=== PATIENT | male | born 1935 | race Caucasian/White ===

== ENCOUNTER → 2017-03-05 | Outpatient (CLI) | payer MEDICARE ==
[~2017-03-05] VITALS: Ht 170.2 cm; Wt 88.5 kg
[~2017-03-05] MED LIST: AMLO5TAB2 PO; ASPI81CH PO; CARV12.5 PO; ECOT81TA5 PO; LIDOCAINE 2% INJ 100 MG/5 ML SDV (FOR ANES.) As Ordered ONE; NEXI40CA PO; NS 1,000 ML IV ONE; PRAV40TA2 PO; PROPOFOL 200 MG/20 ML VIAL As Ordered ONE; fentaNYL 100 MCG/2 ML INJECTION (J3010) As Ordered ONE
--- NOTE | 2017-03-05 11:26 | ROOR ---
Patient Name: Dennis Montes Procedure Date: 03/05/2017 11:03 AM Date of : 1935 Age: 81 Room: [facility] Gender: Male Note Status: Finalized Procedure: Upper GI endoscopy + Balloon Dilatation Indications: Dysphagia, Heartburn Providers: Jayme Rodriguez MD Referring MD: SAMANTHA GARDNER Requesting Provider: Medicines: Monitored Anesthesia Care Complications: No immediate complications. Procedure: Pre-Anesthesia Assessment: - The heart rate, respiratory rate, oxygen saturations, blood pressure, adequacy of pulmonary ventilation, and response to care were monitored throughout the procedure. The Endoscope was introduced through the mouth, and advanced to the second part of duodenum. The upper GI endoscopy was accomplished without difficulty. The patient tolerated the procedure well. Findings: The Z-line was regular and was found 35 cm from the incisors. A non-obstructing Schatzki ring (acquired) was found at the gastroesophageal junction. A TTS dilator was passed through the scope. Dilation with an 18-19-20 mm balloon dilator was performed to 20 mm. The dilation site was examined and showed mild improvement in luminal narrowing. A large hiatal hernia was present. No other significant abnormalities were identified in a careful examination of the stomach. The exam of the duodenum was otherwise normal. Impression: - Z-line regular, 35 cm from the incisors. - Non-obstructing Schatzki ring. Dilated. - Large hiatal hernia. - No specimens collected. - The examination was otherwise normal. Recommendation: - Patient has a contact number available for emergencies. The signs and symptoms of potential delayed complications were discussed with the patient. Return to normal activities tomorrow. Written discharge instructions were provided to the patient. - High fiber diet. - Discharge patient to home. - Continue present medications. - Use Nexium (esomeprazole) 40 mg PO BID. - Follow an antireflux regimen. - Return to referring physician. - The findings and recommendations were discussed with the patient's family. Jayme Rodriguez MD Jayme Rodriguez MD 03/05/2017 11:26:08 AM This report has been signed electronically. Number of Addenda: 0 Note Initiated On: 03/05/2017 11:03 AM Estimated Blood Loss: Estimated blood loss: none.
--- NOTE | 2017-03-05 11:47 | ROOR ---
Patient Name: Dennis Montes Procedure Date: 03/05/2017 11:06 AM Date of : 1935 Age: 81 Room: [facility] Gender: Male Note Status: Finalized Procedure: Total Colonoscopy to Cecum + Cold Snare Polypectomy + Hemoclip Indications: Screening for colorectal malignant neoplasm, Last colonoscopy: 2003 Providers: Jayme Rodriguez MD Referring MD: SAMANTHA GARDNER Requesting Provider: Medicines: Monitored Anesthesia Care Complications: No immediate complications. Procedure: Pre-Anesthesia Assessment: - The heart rate, respiratory rate, oxygen saturations, blood pressure, adequacy of pulmonary ventilation, and response to care were monitored throughout the procedure. The Colonoscope was introduced through the anus and advanced to the cecum, identified by appendiceal orifice and ileocecal valve. The colonoscopy was performed without difficulty. The patient tolerated the procedure well. The quality of the bowel preparation was excellent. Findings: The perianal and digital rectal examinations were normal. Non-bleeding internal hemorrhoids were found during retroflexion. The hemorrhoids were small and Grade I (internal hemorrhoids that do not prolapse). Multiple small and large-mouthed diverticula were found in the recto-sigmoid colon, sigmoid colon and descending colon. Two sessile polyps were found at 50 cm proximal to the anus. The polyps were small in size. These polyps were removed with a cold snare. Resection and retrieval were complete. To prevent bleeding after the polypectomy, one hemostatic clip was successfully placed (MR conditional). There was no bleeding at the end of the procedure. The exam was otherwise without abnormality on direct and retroflexion views. Impression: - Non-bleeding internal hemorrhoids. - Diverticulosis in the recto-sigmoid colon, in the sigmoid colon and in the descending colon. - Two small polyps at 50 cm proximal to the anus, removed with a cold snare. Resected and retrieved. Clip (MR conditional) was placed. - The examination was otherwise normal on direct and retroflexion views. - The exam was otherwise normal to the cecum. Recommendation: - Patient has a contact number available for emergencies. The signs and symptoms of potential delayed complications were discussed with the patient. Return to normal activities tomorrow. Written discharge instructions were provided to the patient. - High fiber diet. - Discharge patient to home. - Continue present medications. - Repeat colonoscopy for symptoms only. - Return to referring physician. - Check Portal Online for Path Results.([email or web address]) - The findings and recommendations were discussed with the patient's family. Jayme Rodriguez MD Jayme Rodriguez MD 03/05/2017 11:47:03 AM This report has been signed electronically. Number of Addenda: 0 Note Initiated On: 03/05/2017 11:06 AM Estimated Blood Loss: Estimated blood loss: none.
[2017-03-05 12:00] VITALS: BP 129/74
== END | disposition home or self-care (01) ==
LOC: M OPP 10:11
PROVIDERS: ATTEND Internal Medicine Gastroenterology
DX: Z12.11 Encounter for screening for malignant neoplasm of colon (principal); D12.5 Benign neoplasm of sigmoid colon; K64.0 First degree hemorrhoids; K57.30 Diverticulosis of large intestine without perforation or abscess without bleeding; R13.10 Dysphagia, unspecified; R12 Heartburn; K22.2 Esophageal obstruction; K44.9 Diaphragmatic hernia without obstruction or gangrene; I10 Essential (primary) hypertension; E78.5 Hyperlipidemia, unspecified; N40.1 Benign prostatic hyperplasia with lower urinary tract symptoms; K21.9 Gastro-esophageal reflux disease without esophagitis; Z86.79 Personal history of other diseases of the circulatory system; Z88.5 Allergy status to narcotic agent; Z79.82 Long term (current) use of aspirin; Z79.899 Other long term (current) drug therapy; Z80.8 Family history of malignant neoplasm of other organs or systems; Z80.3 Family history of malignant neoplasm of breast
CPT/HCPCS: 43249; 45385; 88305; J3010

== ENCOUNTER → 2020-02-03 | Outpatient (CLI) | payer MEDICARE ==
[~2020-02-03] MED LIST changes: -AMLO5TAB2 PO; +AMLO5TAB6 PO; -ASPI81CH PO; +ASPI81CH49 PO; -LIDOCAINE 2% INJ 100 MG/5 ML SDV (FOR ANES.) As Ordered ONE; -NS 1,000 ML IV ONE; -PROPOFOL 200 MG/20 ML VIAL As Ordered ONE; -fentaNYL 100 MCG/2 ML INJECTION (J3010) As Ordered ONE
== END ==
LOC: M PLALAB 08:39
PROVIDERS: ATTEND Internal Medicine
DX: R93.89 Abnormal findings on diagnostic imaging of other specified body structures (principal)
CPT/HCPCS: 36415; U0002

== ENCOUNTER 2020-04-26 03:35 | Emergency (ER) | payer MEDICARE ==
[~2020-04-26 03:35] MED LIST changes: +AMLO1TAB24 PO; -AMLO5TAB6 PO
[2020-04-26] MEDS ORDERED: ASPIRIN 81 MG CHEW TABLET ONE (04:17)
--- NOTE | 2020-06-08 17:04 | ECGEPIP ---
SINUS BRADYCARDIA WITH BORDERLINE ONE DEGREE AVB NONSPECIFIC ST & T-WAVE CHANGES SEE SCANNED DOWNTIME REPORT MTDD
--- NOTE | 2020-06-08 17:05 | ECGEPIP ---
SINUS BRADYCARDIA WITH ONE DEGREE AVB NONSPECIFIC ST & T-WAVE CHANGES SEE SCANNED DOWNTIME REPORT MTDD
[2020-06-11 11:33] LABS: BASO # 0.1 10^3/uL (0.0-0.2); BASO % 0.7 % (0.0-1.0); EOS # 0.4 10^3/uL (0.0-0.5); EOS % 5.5 % (0.0-3.0); HEMATOCRIT 39.4 % (42.0-52.0); HEMOGLOBIN 12.7 g/dl (13.5-17.5); LYMPH # 2.8 10^3/uL (1.5-5.0); LYMPH % 34.4 % (24.0-44.0); MEAN CORPUSCULAR HEMOGLOBIN 31.6 pg (27.0-33.0); MEAN CORPUSCULAR HGB CONC 32.2 g/dl (32.0-36.5); MONO # 0.7 10^3/uL (0.0-0.8); MONO % 8.4 % (0.0-5.0); NEUTROPHILS # 4.1 10^3/uL (1.5-8.5); NEUTROPHILS % 50.9 % (36.0-66.0); PLATELET COUNT, AUTOMATED 247 10^3/uL (150-450); RED BLOOD COUNT 4.02 10^6/uL (4.30-6.10); WHITE BLOOD COUNT 8.1 10^3/uL (4.0-10.0)
[2020-06-20 07:46] LABS: BLOOD UREA NITROGEN 17 MG/DL (7-18); CALCIUM LEVEL 8.8 MG/DL (8.8-10.2); CARBON DIOXIDE LEVEL 30 MEQ/L (21-32); CHLORIDE LEVEL 106 MEQ/L (98-107); CK-MB VALUE MASS < 1.0 NG/ML (<3.6); CPK CREATINE PHOSPHOKINASE 56 U/L (39-308); CREATININE FOR GFR 1.45 MG/DL (0.70-1.30); GLOMERULAR FILTRATION RATE 49.5 (>35); GLUCOSE, FASTING 101 MG/DL (70-100); MB/CK RELATIVE INDEX 1.79 (< OR =4); POTASSIUM SERUM 4.2 MEQ/L (3.5-5.1); SODIUM LEVEL 138 MEQ/L (136-145); TROPONIN I < 0.02 NG/ML (< 0.10)
[2020-07-22 10:12] LABS: CK-MB VALUE MASS 1.2 NG/ML (<3.6); CPK CREATINE PHOSPHOKINASE 55 U/L (39-308); MB/CK RELATIVE INDEX 2.18 (< OR =4); TROPONIN I < 0.02 NG/ML (< 0.10)
== END 2020-04-26 12:40 | disposition home or self-care (01) ==
LOC: M ED 03:35
DX: M79.602 Pain in left arm (principal); I51.9 Heart disease, unspecified; I10 Essential (primary) hypertension; E78.5 Hyperlipidemia, unspecified; J84.10 Pulmonary fibrosis, unspecified; R00.1 Bradycardia, unspecified; I44.0 Atrioventricular block, first degree; R94.31 Abnormal electrocardiogram [ECG] [EKG]; Z79.899 Other long term (current) drug therapy

== ENCOUNTER 2021-06-04 18:04 | Inpatient (IN) | payer MEDICARE ==
[~2021-06-04] VITALS: Ht 167.6 cm; Wt 81.5 kg
--- NOTE | 2021-06-04 18:58 | REP ---
INDICATION: DYSPNEA/COUGH. COMPARISON: 04/26/2020 TECHNIQUE: Portable FINDINGS: The technique utilized in obtaining the radiograph has magnified the cardiac silhouette and accentuated the interstitial markings. There is a marked and diffuse increase in the interstitial markings throughout the lung ayers along with suspected patchy bilateral airspace opacities. Small pleural effusions cannot be ruled out on this limited portable exam. Mild cardiomegaly is suspected, however, the heart borders cannot be detected due to the aforementioned opacities causing multifocal silhouetting. There is no change in the osseous structures. IMPRESSION: Likely acute disease superimposed upon advanced chronic fibrotic change. <Electronically signed by Joaquim Coleman > 06/04/21 [id number]
[2021-06-04 19:16] LABS: BASO # 0.1 10^3/uL (0.0-0.2); BASO % 0.4 % (0.0-1.0); EOS # 0.2 10^3/uL (0.0-0.5); EOS % 1.4 % (0.0-3.0); HEMATOCRIT 25.8 % (42.0-52.0); HEMOGLOBIN 8.2 g/dl (13.5-17.5); LYMPH # 1.5 10^3/uL (1.5-5.0); MEAN CORPUSCULAR HEMOGLOBIN 31.2 pg (27.0-33.0); MEAN CORPUSCULAR HGB CONC 31.8 g/dl (32.0-36.5); MEAN CORPUSCULAR VOLUME 98.1 fl (80.0-96.0); MONO # 1.4 10^3/uL (0.0-0.8); MONO % 10.2 % (2.0-8.0); NEUTROPHILS # 10.4 10^3/uL (1.5-8.5); NEUTROPHILS % 76.3 % (36.0-66.0); PLATELET COUNT, AUTOMATED 312 10^3/uL (150-450); RED BLOOD COUNT 2.63 10^6/uL (4.30-6.10); WHITE BLOOD COUNT 13.6 10^3/uL (4.0-10.0)
[2021-06-04 19:50] LABS: RSV AMPLIFICATION NEGATIVE (NEGATIVE)
[2021-06-04 19:50] LABS: ALBUMIN 2.7 GM/DL (3.2-5.2); ALT/SGPT 18 U/L (12-78); BILIRUBIN,DIRECT 0.1 MG/DL (0.0-0.2); BILIRUBIN,TOTAL 0.4 MG/DL (0.2-1.0); BLOOD UREA NITROGEN 39 MG/DL (7-18); CALCIUM LEVEL 8.8 MG/DL (8.8-10.2); CARBON DIOXIDE LEVEL 25 MEQ/L (21-32); CHLORIDE LEVEL 106 MEQ/L (98-107); CK-MB VALUE MASS < 1.0 NG/ML (<3.6); CPK CREATINE PHOSPHOKINASE 34 U/L (39-308); CREATININE FOR GFR 3.11 MG/DL (0.70-1.30); GLOMERULAR FILTRATION RATE 20.5 (>35); GLUCOSE, FASTING 114 MG/DL (70-100); MB/CK RELATIVE INDEX 2.94 (< OR =4); NT-PRO BNP 3128 PG/ML (<450); POTASSIUM SERUM 4.5 MEQ/L (3.5-5.1); SODIUM LEVEL 137 MEQ/L (136-145); THYROID STIMULATING HORMONE 0.594 uIU/ML (0.358-3.740); THYROXINE (T4) 6.4 UG/DL (4.5-12.0); TOTAL PROTEIN 7.9 GM/DL (6.4-8.2); TROPONIN I < 0.02 NG/ML (< 0.10)
[2021-06-04] MEDS: guaiFENesin ER 600 MG TAB PO SCH (21:00)
[2021-06-04] MEDS: OCUVITE 1 TAB PO SCH (21:00)
[2021-06-04] MEDS: PRAVASTATIN 20 MG TAB PO SCH (21:00)
[2021-06-04] MEDS: PANTOPRAZOLE 40MG TAB (PROTONIX) PO SCH (21:00)
[2021-06-04] MEDS: CARVedilol 12.5 MG TAB PO SCH (21:00)
--- NOTE | 2021-06-04 21:56 | REPVR ---
PROCEDURE INFORMATION: Exam: CT Chest Without Contrast; Diagnostic Exam date and time: 06/04/2021 8:35 PM Age: 85 years old Clinical indication: Shortness of breath; Additional info: Further evaluate SOB; ? Pneumonia TECHNIQUE: Imaging protocol: Diagnostic computed tomography of the chest without contrast. 3D rendering (Not supervised by radiologist): MIP and/or 3D reconstructed images were created by the technologist. Radiation optimization: All CT scans at this facility use at least one of these dose optimization techniques: automated exposure control; mA and/or kV adjustment per patient size (includes targeted exams where dose is matched to clinical indication); or iterative reconstruction. COMPARISON: CR PORTABLE CHEST X-RAY 06/04/2021 6:35 PM FINDINGS: Lungs: Multiple bilateral solid pulmonary parenchymal infiltrates consistent with multifocal pneumonitis. There is evidence of septal thickening in both upper lower lung zones with honeycombing suggesting underlying interstitial lung disease. Bibasilar bronchiectasis and bronchiectasis in the right middle lobe. Pleural spaces: Unremarkable. No pneumothorax. No pleural effusion. Heart: This patient is status post transaortic valve replacement (TAVR). Mediastinal space: A moderate hiatal hernia is present. Pulmonary arteries: There is enlargement of the central pulmonary arteries, findings which can be associated with pulmonary arterial hypertension which should be correlated clinically. Aorta: Unremarkable. No aortic aneurysm. Lymph nodes: Mediastinal lymphadenopathy measuring up to 3 cm in the pretracheal retrocaval area. Gallbladder and bile ducts: There are gallstones present. No evidence of cholecystitis demonstrated. Bones/joints: The spine demonstrates moderate degenerative changes. Age indeterminate compression deformity at L1. Clinical correlation to exclude acute fracture suggested. Soft tissues: Unremarkable. IMPRESSION: 1. Multiple bilateral solid pulmonary parenchymal infiltrates consistent with multifocal pneumonitis. There is evidence of septal thickening in both upper lower lung zones with honeycombing suggesting underlying interstitial lung disease. 2. Bibasilar bronchiectasis and bronchiectasis in the right middle lobe. 3. Mediastinal lymphadenopathy measuring up to 3 cm in the pretracheal retrocaval area. 4. There is enlargement of the central pulmonary arteries, findings which can be associated with pulmonary arterial hypertension which should be correlated clinically. 5. A moderate hiatal hernia is present. 6. There are gallstones present. No evidence of cholecystitis demonstrated. Electronically signed by: Kip Pearce On 06/04/2021 21:55:53 PM
[2021-06-04] MEDS ORDERED: methylPREDNISolone 125MG 2ML VIAL IV ONE (22:10)
[2021-06-04 22:47] VITALS: O2SAT 90
[2021-06-04] MEDS ORDERED: PANT40TA29 PO (22:53)
[2021-06-04] MEDS ORDERED: ASPI-161 PO (22:53)
[2021-06-04] MEDS ORDERED: OCUVTAB4 PO (22:53)
[2021-06-04] MEDS ORDERED: VITA-245 PO (22:53)
[2021-06-04] MEDS ORDERED: FAMO40TA3 PO (22:53)
[2021-06-04] MEDS ORDERED: C 50TAB PO (22:53)
[2021-06-04] MEDS ORDERED: HOME MED LIST COMPLETE! XX SCH (22:55)
[2021-06-04] MEDS ORDERED: ACETAMINOPHEN TAB 650MG DOSE (2X325MG) PO PRN (22:55)
[2021-06-04] MEDS ORDERED: CARV25TA PO (22:58)
[2021-06-04 23:07] LABS: MAGNESIUM LEVEL 2.2 MG/DL (1.8-2.4)
--- NOTE | 2021-06-05 00:04 | HPEPDOC ---
General Date of Admission 06/04/21 Date of Service: Jun 04, 2021 Chief Complaint shortness of breath Source: Patient History of Present Illness Ms. Montes is a 85-year-old male with significant history of hypertension, GERD, CKD, vertigo TAVR and chronic respiratory failure who presents with complaints of worsening shortness of breath. Patient reports that he splits his time in [place] and [place] depend on the season. He is in the process of transitioning to [facility] living [facility] so that he and his can be close to his daughter who is a retired RN. Patient reports that he recently had cardiac work-up done in his home town of [facility] with no new findings he also endorses last week undergoing an EGD with GI to confirm that he no longer has a gastric ulcer. Patient reports that for the past 3 days he has had worsening shortness of breath dyspnea on exertion and poor saturation readings as low as 84% with his 6 L nasal cannula. Patient endorses cough productive and even bloody. He also endorses subjective fever chills. It was today as he was feeling "out of it and his family was reportedly concerned regarding patient passing out or he described "or maybe I did pass out" and thus, he came to ER. Pt denies bagley, sinus congestion, sore throat, palpitations, chest pain, n/v/d, abdominal pain, weakness, or sensory changes. Of note, patient saturation in the 70s upon arrival to ER improvement with nonrebreather and de-escalation.oxime mask 10 L 91%. At time of exam patient unlabored and seemingly comfortable. During high talkative point of exam patient did notably desat to 86% but upon sitting up and not talking he was able to increase to 91%. Patient reports that he feels much better with oxygen and feels almost at baseline breathing effort. . Home Medications Scheduled Amlodipine Besylate (Amlodipine Besylate) 5 Mg Tab, 5 MG PO DAILY, (Reported) Ascorbic Acid (Vitamin C) 500 Mg Tablet, 500 MG PO DAILY, (Reported) TAKES AT LUNCH Aspirin (Aspirin EC) 81 Mg Tablet.dr, 81 MG PO DAILY, (Reported) Carvedilol (Carvedilol) 25 Mg Tablet, 25 MG PO BID, (Reported) Famotidine (Famotidine) 40 Mg Tablet, 40 MG PO DAILY, (Reported) Pantoprazole Sodium (Pantoprazole Sodium) 40 Mg Tablet.dr, 40 MG PO QHS, (Reported) Pravastatin Sodium (Pravastatin Sodium) 40 Mg Tab, 40 MG PO QHS, (Reported) Vit A/Vit C/Vit E/Zinc/Copper (Preservision Areds Tablet) 1 Each Tablet, 1 TAB PO BID, (Reported) Vitamin E (Vitamin E) 400 Unit Capsule, 400 UNIT PO DAILY, (Reported) TAKES AT LUNCH Allergies Coded Allergies: morphine (Verified Adverse Reaction, Mild, vomiting, 06/04/21) Past Medical History Medical History hypertension, GERD, CKD stage IV, vertigo, and chronic respiratory failure, pulmonary fibrosis Surgical History TAVR, T&A, hernia repair Family History Significant Family History: No pertinent family hx Social History * Smoker: Denies Alcohol: Denies Drugs: denies Recent Travel/Sick Contacts: Reports: Recent travel (Pt frequents time between [place]) Patient reports that he splits his time in [place] and [place] depend on the season. He is in the process of transitioning to [facility] assisted living feels still that he to be close to his daughter. A-FIB/CHADSVASC A-FIB History Current/History of A-Fib/PAF?: No Current PO Anticoag Therapy: No Review of Systems Constitutional: Reports: Chills, Fever, Fatigue; Denies: Night Sweats Eyes: Denies: Pain, Vision change ENT: Denies: Head Aches, Ear Pain, Dysphagia Skin: Denies: Rash, Lesions, Breakdown Pulmonary: Reports: Dyspnea, Cough Cardiovascular: Denies: Chest Pain, Palpitations, Orthopnea, Paroxysmal Noc. Dyspnea, Lt Headedness Gastrointestinal: Denies: Nausea, Vomiting, Abdominal Pain, Diarrhea Genitourinary: Denies: Dysuria, Frequency, Incontinence, Retention Hematologic: Denies: Bruising, Bleeding Excessively Musculoskeletal: Denies: Neck Pain, Back Pain, Joint Pain, Muscle Pain, Spasms Neurological: Denies: Weakness, Numbness, Change in speech, Confusion Psych: Reports: Mood Normal; Denies: Depression, Memory Issues Physical Examination General Exam: Positive: Alert, Cooperative, No Acute Distress Eye Exam: Positive: PERRLA, Conjunctiva & lids normal, EOMI; Negative: Sclera icteric ENT Exam: Positive: Atraumatic, Mucous membr. moist/pink, Pharynx Normal Neck Exam: Positive: Supple; Negative: JVD, thyromegaly Chest Exam: Positive: Rales (Coarse Rales), Rhonchi Heart Exam: Positive: Rate Normal, Regular Rhythm, Normal S1, Normal S2; Negative: Murmurs, Rubs Telemetry: Positive: Sinus Abdomen Exam: Positive: Normal bowel sounds, Soft; Negative: Tenderness, Hepatospenomegaly Extremity Exam: Positive: Normal pulses; Negative: Clubbing, Cyanosis, Edema Skin Exam: Positive: Nl turgor and temperature, Other skin issue (Scalp sutures and scab; nontender and without erythema); Negative: Breakdown, Lesion Neuro Exam: Positive: Normal Gait, Normal Speech, Cranial Nerves 3-12 NL, Reflexes 2+ Psych Exam: Positive: Mental status NL, Mood NL, Oriented x 3 Vital Signs Vital Signs Date Time Temp Pulse Resp B/P (MAP) Pulse Ox O2 Delivery O2 Flow Rate FiO2 06/04/21 22:47 90 Aerosol Mask 10.0 98 06/04/21 19:04 78 06/04/21 18:49 97.6 30 06/04/21 18:45 145/66 (92) Laboratory Data Labs 24H Laboratory Tests 2 06/04/21 18:57: Immature Granulocyte % (Auto) 0.7, Neutrophils (%) (Auto) 76.3H, Lymphocytes (%) (Auto) 11.0L, Monocytes (%) (Auto) 10.2H, Eosinophils (%) (Auto) 1.4, Basophils (%) (Auto) 0.4, Neutrophils # (Auto) 10.4H, Lymphocytes # (Auto) 1.5, Monocytes # (Auto) 1.4H, Eosinophils # (Auto) 0.2, Basophils # (Auto) 0.1, Nucleated Red Blood Cells % (auto) 0.0, Anion Gap 6L, Glomerular Filtration Rate 20.5L, Lactic Acid Level 1.2, Calcium Level 8.8, Magnesium Level 2.2, Total Bilirubin 0.4, Direct Bilirubin 0.1, Aspartate Amino Transf (AST/SGOT) 13, Alanine Aminotransferase (ALT/SGPT) 18, Alkaline Phosphatase 67, Total Creatine Kinase 34L, Creatine Kinase MB < 1.0, Creatine Kinase MB Relative Index 2.94, Troponin I < 0.02, KL-Lei-B-Type Natriuretic Peptide 3128H, Total Protein 7.9, Albumin 2. 7L, Albumin/Globulin Ratio 0.5, Thyroid Stimulating Hormone (TSH) 0.594, Thyroxine (T4) 6.4 06/04/21 19:02: Coronavirus (COVID-19)(PCR) NEGATIVE, Influenza Type A (RT-PCR) NEGATIVE, Influenza Type B (RT-PCR) NEGATIVE, Respiratory Syncytial Virus (PCR) NEGATIVE 06/04/21 22:41: POC pH (Misc Panel) 7.394, POC Base Excess (Misc Panel) -4.0L, POC Saturated Percent O2 (Misc) 91L, POC pO2 (Misc Panel) 61.0L, POC pCO2 (Misc Panel) 34.6L, POC HCO3 (Misc Panel) 21.1L, POC Total CO2 (Misc Panel) 22.0L CBC/BMP Laboratory Tests 06/04/21 18:57 Assessment/Plan 1. Acute on chronic respiratory failure with hypoxia secondary to interstitial lung disease exacerbation: Patient with history of pulmonary fibrosis related to aspiration of reflux causing scarring reportedly; baseline 6 L nasal cannula and now requiring 8 L nasal cannula. Patient is opting due to comfort reasons since unable to humidify the high flow nasal cannula given supplies shortage to opt for mask with humidification. Given leukocytosis/subjective fevers and chills-concern for developing pneumonia. Lactic is not elevated. Pro-José Miguel pending. ABG pending. -Monitor patient for worsening signs symptoms of an infection -Telemetry and continuous pulse, goal o2 88-92%, pt reports he "is happy been greater than 90 at home". During exam conversation he dropped to spo2 86% but was unlabored -Scheduled and as needed breathing treatment -Antitussives and mucolytic's -Scheduled steroids every 8 hours Solu-Medrol 40 mg -Pulmonary toilet Acapella -Empiric coverage with Levaquin. Consider expanding coverage accordingly. -A.m. lab 2. ?presyncope: Patient reports that as he had worsening shortness of breath and malaise and described "being out of it" and possibly almost passed out and thus, he was encouraged to come to hospital by family. No documentation of syncope. -In setting of above likely presyncopal component related to oxygen he was noted to be in the 70s at his baseline oxygen per ED. -Will opt for orthostatics in a.m.-modified if patient's oxygen demand unable to support traditional orthostatics. -Patient recently had cardiac work-up at another facility. Obtain echo records as able. -Consider differential and further work-up accordingly. 3. Hemoptysis: In setting of above. Given patient with elevated creatinine unable to have contrast CT. Differential includes relative to irritation/infection versus reflux with patient's known gastritis/recent EGD and ulcer reported, concern for pulmonary hypertension or even PE. Wells score 1 lower suspicion PE. -Consider further work-up with pulmonary recommendations. 4. CKD: Last creatinine on file from 2019 creatinine 1.4, today 3.1. Pt confirms he has stage 4 and Cr is typically 3.2. Patient does report poor p.o. today with admission. He is not on any diuretics. Monitor fluid balance, urine output, I's and O's Avoid nephrotoxins as able A.m. lab 5. History of gastric ulcer and GERD: Patient does have hiatal hernia noted on CT. Patient reports that a week ago he underwent a EGD that confirmed he did not have active bleeding ulcer. Continue patient PPI. 6. Anemia: Hemoglobin 8.2 in setting of recent ulcer reportedly. Patient last lab work showed hemoglobin 12.7. Anemia panel sent. Hemoccult ordered. Patient endorsed Advil x3 on Friday given head discomfort from a punch biopsy on his scalp. Consider differentials, patient is on PPI. Monitor for bleeding trend H&H. Consider GI work-up accordingly. 7. Hx TAVR and elevated BNP: Pt reports recent echo with cardiology outside health system, denies CHF or diuretic use. He does not appear overloaded on exam. As mentioned previously concern for pulmonary hypertension. Consider echo if records unable to be obtained. 8. Hypertension: Monitor blood pressure in setting of above. Continue home medications amlodipine and Coreg with parameters. Again, will check orthostatics. 9. Vertigo: Patient describes history of this and positional. Encourage slow positional changes. Consider meclizine accordingly. 10. Scalp wound: Anterior scalp; scab and sutures noticeable. Appears to be he aling and without surrounding erythema or tenderness. Monitor for wound healing. DVT prophylaxis: Saadia score 2- SCDs CODE STATUS: DNR/DNI. Patient confirmed this and he has paperwork to be obtaine d. Patient reports that his and daughter are aware of his wishes. Patient's is Fannie and can be reached at [phone]. Disposition: Home once patient tolerating baseline O2, anticipate 2 midnight Plan / VTE VTE Prophylaxis Ordered?: Yes MAGNUS ASHLEY NP Jun 04, 2021 23:16 NICOLE CACERES MD Jun 11, 2021 02:45
[2021-06-05] MEDS: IPRATROPIUM 0.5MG/ALBUTEROL 2.5MG INH SOL UD 3ML (DUONEB) NEB SCH ×4 (00:41→20:57)
[2021-06-05 01:05] LABS: FERRITIN 380 NG/ML (26-388); IRON (FE) 22 UG/DL (65-175); TOTAL IRON BINDING CAPACITY 221 UG/DL (250-450)
[2021-06-05 02:02] LABS: HEMATOCRIT 24.8 % (42.0-52.0)
[2021-06-05] MEDS ORDERED: HEPARIN SOD (PORCINE) 5000UNITS/ML 1ML VIAL/SYRINGE SC SCH (06:00)
[2021-06-05] MEDS: methylPREDNISolone 40MG 1ML VIAL IV SCH ×3 (06:32→20:26)
[2021-06-05 06:36] LABS: BASO % 0.2 % (0.0-1.0); HEMATOCRIT 25.4 % (42.0-52.0); HEMOGLOBIN 8.2 g/dl (13.5-17.5); LYMPH # 0.9 10^3/uL (1.5-5.0); LYMPH % 7.1 % (24.0-44.0); MEAN CORPUSCULAR HEMOGLOBIN 31.3 pg (27.0-33.0); MEAN CORPUSCULAR HGB CONC 32.3 g/dl (32.0-36.5); MEAN CORPUSCULAR VOLUME 96.9 fl (80.0-96.0); MONO # 0.3 10^3/uL (0.0-0.8); MONO % 2.5 % (2.0-8.0); NEUTROPHILS # 11.3 10^3/uL (1.5-8.5); NEUTROPHILS % 89.3 % (36.0-66.0); PLATELET COUNT, AUTOMATED 318 10^3/uL (150-450); RED BLOOD COUNT 2.62 10^6/uL (4.30-6.10); WHITE BLOOD COUNT 12.6 10^3/uL (4.0-10.0)
[2021-06-05 07:00] LABS: CALCIUM LEVEL 8.7 MG/DL (8.8-10.2); CREATININE FOR GFR 3.16 MG/DL (0.70-1.30); GLOMERULAR FILTRATION RATE 20.1 (>35); POTASSIUM SERUM 4.6 MEQ/L (3.5-5.1)
[2021-06-05] MEDS: FLUTICASONE PROP 0.05% NASAL SPRAY 16 GM (FLONASE) NARES SCH (09:00)
[2021-06-05] MEDS: OCUVITE 1 TAB PO SCH ×2 (09:00→21:38)
[2021-06-05] MEDS: FAMOTIDINE 20 MG TAB PO SCH (09:43)
[2021-06-05] MEDS: guaiFENesin ER 600 MG TAB PO SCH ×2 (09:43→21:38)
[2021-06-05] MEDS: CARVedilol 12.5 MG TAB PO SCH ×2 (09:43→21:39)
[2021-06-05] MEDS: ASPIRIN 81MG ENTERIC TABLET PO SCH (09:43)
[2021-06-05] MEDS: amLODIPine 5 MG TAB PO SCH (09:43)
[2021-06-05 10:18] LABS: FOLATE 12.9 NG/ML (>5.4); VITAMIN B12 LEVEL 353 PG/ML (247-911)
[2021-06-05 11:04] LABS: HEMATOCRIT 25.4 % (42.0-52.0); HEMOGLOBIN 8.2 g/dl (13.5-17.5)
[2021-06-05] MEDS: VITAMIN E 400 INTERNATIONAL UNITS CAP PO SCH (12:00)
[2021-06-05] MEDS: ASCORBIC ACID 500 MG TAB PO SCH (12:54)
[2021-06-05 16:30] VITALS: BP 119/56
[2021-06-05] MEDS ORDERED: LevoFLOXacin IV 500 MG in IV 1 EA IV ONE (17:40)
--- NOTE | 2021-06-05 17:57 | IPNPDOC ---
Subjective Date Seen The patient was seen on 06/05/21. Subjective Chief Complaint/HPI Patient was seen and examined at bedside this morning. He continues to feel short of breath with movement. He denies chest pain, abdominal pain, nausea, vomiting, problem with urination or bowel movements. Objective Physical Examination Neck Exam: Positive: Supple Other physical findings General: Lying in bed, no acute distress Head/Neck/Throat: Trachea midline, mucous membranes moist Eyes: Sclera anicteric, no erythema or discharge appreciated bilaterally Thorax: On 10 L nasal cannula nonrebreather, inspiratory crackles appreciated bilaterally Cardiovascular: Normal rate, regular rhythm, normal S1, S2; no S3, S4, rubs/gallops/murmurs Abdomen: Bowel sounds present, soft/nontender/nondistended Genitourinary: No CVA tenderness, no Rocha in place Musculoskeletal: Moving all extremities, no edema Skin: Warm, dry Neurologic: AAOx3, speech fluent and goal-directed, no focal deficits, grossly intact Assessment /Plan Assessment #Acute on chronic respiratory failure with hypoxia -Patient has underlying 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 He is on baseline 6 L nasal cannula and in the emergency department he was requiring up to 10 L on mid flow. -Continue with IV steroids for exacerbation. -Continue with ab although procalcitonin min. susp for pna. Obtain sputum cultures. -Supportive care with acapella, nebulizer treatment as needed. -O2 saturation of 88 to 92%. #Presyncope -Likely secondary to his hypoxemia. Continue to monitor on telemetry. Orthostatic signs were negative. #Hemoptysis -Continue with plan as above. #CKD -Patient able to report that he has CKD stage IV and his creatinine baseline is 2.2. -Monitor urinary output, I/os, avoid nephrotoxic medication #GERD -Continue with PPI therapy #Macrocytic anemia -Iron panel consistent with anemia of chronic disease, likely due to his chronic kidney disease. -h/h remains stable. Obtain B12/folate levels. #DVT prophylaxis -Continue with SCDs for today, if H&H remains stable will start heparin subcu. Plan/VTE VTE Prophylaxis Ordered?: Yes VS, I&O, 24H, Fishbone Vital Signs/I&O Vital Signs Date Time Temp Pulse Resp B/P (MAP) Pulse Ox O2 Delivery O2 Flow Rate FiO2 06/05/21 16:30 97.5 71 20 119/56 (77) 88 Aerosol Mask 15.0 06/04/21 22:47 98 Laboratory Data 24H LABS Laboratory Tests 2 06/04/21 18:57: Immature Granulocyte % (Auto) 0.7, Neutrophils (%) (Auto) 76.3H, Lymphocytes (%) (Auto) 11.0L, Monocytes (%) (Auto) 10.2H, Eosinophils (%) (Auto) 1.4, Basophils (%) (Auto) 0.4, Neutrophils # (Auto) 10.4H, Lymphocytes # (Auto) 1.5, Monocytes # (Auto) 1.4H, Eosinophils # (Auto) 0.2, Basophils # (Auto) 0.1, Nucleated Red Blood Cells % (auto) 0.0, Anion Gap 6L, Glomerular Filtration Rate 20.5L, Lactic Acid Level 1.2, Calcium Level 8.8, Magnesium Level 2.2, Iron Level 22L, Total Iron Binding Capacity 221L, Transferrin % Saturation 10.0L, Ferritin 380, Total Bilirubin 0.4, Direct Bilirubin 0.1, Aspartate Amino Transf (AST/SGOT) 13, Alanine Aminotransferase (ALT/SGPT) 18, Alkaline Phosphatase 67, Total Creatine Kinase 34L, Creatine Kinase MB < 1.0, Creatine Kinase MB Relative Index 2.94, Troponin I < 0.02, LX-Lbe-C-Type Natriuretic Peptide 3128H, Total Protein 7.9, Albumin 2.7L, Albumin/Globulin Ratio 0.5, Vitamin B12 Level 353, Folate 12.9, Thyroid Stimulating Hormone (TSH) 0.594, Thyroxine (T4) 6.4 06/04/21 19:02: Coronavirus (COVID-19)(PCR) NEGATIVE, Influenza Type A (RT-PCR) NEGATIVE, Influenza Type B (RT-PCR) NEGATIVE, Respiratory Syncytial Virus (PCR) NEGATIVE 06/04/21 22:41: POC pH (Misc Panel) 7.394, POC Base Excess (Misc Panel) -4.0L, POC Saturated Percent O2 (Misc) 91L, POC pO2 (Misc Panel) 61.0L, POC pCO2 (Misc Panel) 34.6L, POC HCO3 (Misc Panel) 21.1L, POC Total CO2 (Misc Panel) 22.0L 06/04/21 23:58: Procalcitonin 0.09 06/05/21 05:40: Immature Granulocyte % (Auto) 0.9, Neutrophils (%) (Auto) 89.3H, Lymphocytes (%) (Auto) 7.1L, Monocytes (%) (Auto) 2.5, Eosinophils (%) (Auto) 0.0, Basophils (%) (Auto) 0.2, Neutrophils # (Auto) 11.3H, Lymphocytes # (Auto) 0.9L, Monocytes # (Auto) 0.3, Eosinophils # (Auto) 0.0, Basophils # (Auto) 0.0, Nucleated Red Blood Cells % (auto) 0.0, Anion Gap 9, Glomerular Filtration Rate 20.1L, Calcium Level 8.7L CBC/BMP Laboratory Tests 06/04/21 18:57 06/05/21 01:56 06/05/21 05:40 06/05/21 10:44 Microbiology Microbiology 06/04/21 Blood Culture, Received Pending 06/04/21 Blood Culture, Received Pending MENDY LEE M.D. Jun 05, 2021 17:28
[2021-06-05 18:11] LABS: HEMOGLOBIN 8.2 g/dl (13.5-17.5)
[2021-06-05] MEDS: MIRALAX *UNIT DOSE* 17GM PACKET PO SCH (18:29)
[2021-06-05 21:00] VITALS: BP 122/60
[2021-06-05] MEDS: PANTOPRAZOLE 40MG TAB (PROTONIX) PO SCH (21:38)
[2021-06-05] MEDS: PRAVASTATIN 20 MG TAB PO SCH (21:38)
[2021-06-05 22:00] VITALS: BP 119/58
[2021-06-06] VITALS: BP 101/55
[2021-06-06] MEDS: IPRATROPIUM 0.5MG/ALBUTEROL 2.5MG INH SOL UD 3ML (DUONEB) NEB SCH ×4 (01:06→20:16)
[2021-06-06] MEDS: methylPREDNISolone 40MG 1ML VIAL IV SCH ×4 (01:36→20:00)
[2021-06-06 04:00] VITALS: BP 119/57
--- NOTE | 2021-06-06 04:02 | CR.PDOC ---
General Date of Consultation: Jun 06, 2021 Referring Provider: MENDY LEE M.D. Attending Physician: MENDY LEE M.D. Consultation REASON FOR CONSULTATION/CHIEF COMPLAINT: Cough and shortness of breath. HISTORY OF PRESENT ILLNESS: This is a 85-year-old gentleman with past medical history of GERD, pulmonary fibrosis with UIP pattern, CKD, aortic stenosis status post TAVR, chronic hypoxic respiratory failure secondary to pulmonary fibrosis on 6 L oxygen at home at baseline presented to hospital with worsening shortness of breath. For the past 3 days patient has been experiencing productive cough and shortness of breath. His productive cough is consist of whitish sputum. This is new from his baseline. He is also on 60s oxygen at home however the oxygen measure 3 days ago was hovering around 80s percents. Therefore he called his who said he should be evaluated at [place] where his daughter used to work. Otherwise, patient denies of fever, chills, chest pain, palpitation, orthopnea, pleuritic chest pain, lower extremity swelling. Patient has extensive GERD symptom for his entire life. He was evaluated by Dr. Sepulveda from [facility] and deemed the his underlying pulmonary fibrosis is likely from uncontrolled GERD. Patient was not a transplant candidate given his age and comorbid conditions. Upon arrival to the emergency department, patient was saturating in the 70s and 80s despite nonrebreather. He was upgraded to ICU status and started on Vapotherm. Pulmonary was consulted for further recommendation. Work-up revealed patient has a slight leukocytosis with left shift but no significant bandemia. On chemistry, proBNP is elevated at 3000. Procalcitonin is 0.09. Creatinine is 3.1 with BUN 39 which is his baseline. COVID-19 PCR, influenza AMB, RSV are all negative. ALLERGIES: Please see below. HOME MEDICATIONS: Please see below. Medical History hypertension, GERD, CKD stage IV, vertigo, and chronic respiratory failure, pulmonary fibrosis Surgical History TAVR, T&A, hernia repair Family History Significant Family History: No pertinent family hx Social History * Smoker: Denies Alcohol: Denies Drugs: denies Recent Travel/Sick Contacts: Reports: Recent travel [place] Patient reports that he splits his time in [place] and [place] depend on the season. He is in the process of transitioning to [facility] assisted living feels still that he to be close to his daughter. REVIEW OF SYSTEMS: CONSTITUTIONAL: Denies fever, chills, weight loss, night sweats, sick contact. HEENT: Denies sore throat or sinusitis. CARDIOVASCULAR: Denies chest pain, palpitation, orthopnea, lower extremity swelling. RESPIRATORY: Admits to shortness of breath and productive cough. Denies hemoptysis or wheezing. GENITOURINARY: Denies dysuria or flank pain. MUSCULOSKELETAL: Denies myalgia arthralgia or joint swelling/joint pain. GASTROINTESTINAL: Admits to acid reflux. Denies abdominal pain, nausea, vomiting, diarrhea, blood in stool SKIN: Denies skin rash. NEUROLOGICAL: Denies slurred speech or focal weakness/numbness. PSYCHIATRIC: Denies depression. ENDOCRINE: Denies weight changes. HEMATOLOGIC/LYMPHATIC: Denies bleeding. ALLERGIC/IMMUNOLOGIC: Denies allergy. PHYSICAL EXAMINATION: VITAL SIGNS: Please see below. GENERAL APPEARANCE: Appears as stated age. Mild distress. However, alert and oriented x3. He is a very pleasant gentleman. HEENT: No evidence of JVD or cervical adenopathy. RESPIRATORY: Bibasilar coarse crackles up to the midlung field. Negative diminished breath sounds CARDIOVASCULAR: Normal S1-S2 with systolic murmur best heard in the left parasternal border. ABDOMEN: Soft nondistended and normal bowel sounds. EXTREMITIES: No evidence of clubbing or pedal edema. NEUROLOGICAL: Nonfocal finding. PSYCHIATRIC: Alert and oriented x3. LABORATORY DATA: Please see below. ASSESSMENT/PLAN: This is a 85-year-old gentleman with past medical history of GERD, pulmonary fibrosis with UIP pattern, CKD, aortic stenosis status post TAVR, chronic hypoxic respiratory failure secondary to pulmonary fibrosis on 6 L oxygen at home at baseline presented to hospital with worsening shortness of breath. 1. Acute on chronic hypoxic respiratory failure. 2. Community-acquired pneumonia. 3. Exacerbation of underlying UIP/pulmonary fibrosis 4. Uncontrolled GERD 5. Large hiatal hernia Recommendations: -Despite having low procalcitonin, there is still suspicion that this could be community-acquired pneumonia given presenting symptoms and productive cough. Therefore I am going to start the patient on short course of ceftriaxone and azithromycin. -I am going to obtain sputum sample for culture and Gram stain. Work-up for atypical microorganism has been sent. -I have change his Protonix to 40 mg twice daily to get his GERD under control. -Aspiration precaution. -Very limited evidence in the use of systemic corticosteroid in this setting. However, given the severity of his respiratory failure, I do not think we have anything to lose by starting him on systemic corticosteroid. Vital Signs/I&O Vital Signs Date Time Temp Pulse Resp B/P (MAP) Pulse Ox O2 Delivery O2 Flow Rate FiO2 06/06/21 01:06 93 HVNI-Vapotherm 35.0 80 06/06/21 00:00 97.3 74 24 101/55 (70) I&O- Last 24 Hours up to 6 AM 06/06/21 06:00 Intake Total 1680 ml Output Total 600 ml Balance 1080 ml Laboratory Data Labs 24H Laboratory Tests 2 06/05/21 05:40: Immature Granulocyte % (Auto) 0.9, Neutrophils (%) (Auto) 89.3H, Lymphocytes (%) (Auto) 7.1L, Monocytes (%) (Auto) 2.5, Eosinophils (%) (Auto) 0.0, Basophils (%) (Auto) 0.2, Neutrophils # (Auto) 11.3H, Lymphocytes # (Auto) 0.9L, Monocytes # (Auto) 0.3, Eosinophils # (Auto) 0.0, Basophils # (Auto) 0.0, Nucleated Red Blood Cells % (auto) 0.0, Anion Gap 9, Glomerular Filtration Rate 20.1L, Calcium Level 8.7L CBC/BMP Laboratory Tests 06/05/21 05:40 06/05/21 10:44 06/05/21 18:00 Microbiology Microbiology 06/04/21 Blood Culture - Preliminary, Resulted No growth after 24 hours . All specim... 06/04/21 Blood Culture - Preliminary, Resulted No growth after 24 hours . All specim... Allergies Coded Allergies: morphine (Verified Adverse Reaction, Mild, vomiting, 06/04/21) Home Medications Scheduled Amlodipine Besylate (Amlodipine Besylate) 5 Mg Tab, 5 MG PO DAILY, (Reported) Ascorbic Acid (Vitamin C) 500 Mg Tablet, 500 MG PO DAILY, (Reported) TAKES AT LUNCH Aspirin (Aspirin EC) 81 Mg Tablet.dr, 81 MG PO DAILY, (Reported) Carvedilol (Carvedilol) 25 Mg Tablet, 25 MG PO BID, (Reported) Famotidine (Famotidine) 40 Mg Tablet, 40 MG PO DAILY, (Reported) Pantoprazole Sodium (Pantoprazole Sodium) 40 Mg Tablet.dr, 40 MG PO QHS, (Reported) Pravastatin Sodium (Pravastatin Sodium) 40 Mg Tab, 40 MG PO QHS, (Reported) Vit A/Vit C/Vit E/Zinc/Copper (Preservision Areds Tablet) 1 Each Tablet, 1 TAB PO BID, (Reported) Vitamin E (Vitamin E) 400 Unit Capsule, 400 UNIT PO DAILY, (Reported) TAKES AT LUNCH ANDRADE VIDAL MD Jun 06, 2021 04:02
[2021-06-06 04:59] LABS: HEMATOCRIT 22.7 % (42.0-52.0); HEMOGLOBIN 7.4 g/dl (13.5-17.5); LYMPH # 1.4 10^3/uL (1.5-5.0); MEAN CORPUSCULAR HEMOGLOBIN 31.2 pg (27.0-33.0); MEAN CORPUSCULAR HGB CONC 32.6 g/dl (32.0-36.5); MEAN CORPUSCULAR VOLUME 95.8 fl (80.0-96.0); MONO # 1.2 10^3/uL (0.0-0.8); MONO % 5.1 % (2.0-8.0); NEUTROPHILS # 20.6 10^3/uL (1.5-8.5); PLATELET COUNT, AUTOMATED 311 10^3/uL (150-450); RED BLOOD COUNT 2.37 10^6/uL (4.30-6.10); WHITE BLOOD COUNT 23.5 10^3/uL (4.0-10.0)
[2021-06-06] MEDS ORDERED: AZITHROMYCIN INJ 500 MG, VIAL MATE ADAPTER 1 EACH in NS 250 ML IV SCH (05:00)
[2021-06-06 05:19] LABS: CALCIUM LEVEL 8.5 MG/DL (8.8-10.2); CREATININE FOR GFR 3.08 MG/DL (0.70-1.30); GLOMERULAR FILTRATION RATE 20.7 (>35); POTASSIUM SERUM 4.6 MEQ/L (3.5-5.1)
[2021-06-06 06:00] VITALS: BP 119/53
[2021-06-06] MEDS ORDERED: cefTRIAXone SOD 2 GM in D5W MINI-BAG PLUS 50 ML IV SCH (06:00)
[2021-06-06 08:00] VITALS: BP 141/65
[2021-06-06 08:28] VITALS: BP 141/65
[2021-06-06] MEDS: guaiFENesin ER 600 MG TAB PO SCH (08:28)
[2021-06-06] MEDS: amLODIPine 5 MG TAB PO SCH (08:28)
[2021-06-06] MEDS: ASPIRIN 81MG ENTERIC TABLET PO SCH (08:29)
[2021-06-06] MEDS: CARVedilol 12.5 MG TAB PO SCH (08:29)
[2021-06-06] MEDS: FLUTICASONE PROP 0.05% NASAL SPRAY 16 GM (FLONASE) NARES SCH (08:29)
[2021-06-06] MEDS: OCUVITE 1 TAB PO SCH (08:30)
[2021-06-06] MEDS: MIRALAX *UNIT DOSE* 17GM PACKET PO SCH (08:30)
[2021-06-06] MEDS: FAMOTIDINE 20 MG TAB PO SCH (08:30)
[2021-06-06] MEDS ORDERED: PANTOPRAZOLE 40MG TAB (PROTONIX) PO SCH (09:00)
[2021-06-06 12:00] VITALS: BP 115/57
[2021-06-06] MEDS: ASCORBIC ACID 500 MG TAB PO SCH (12:00)
[2021-06-06] MEDS: VITAMIN E 400 INTERNATIONAL UNITS CAP PO SCH (12:00)
[2021-06-06] MEDS ORDERED: FLUBLOK(EGG FREE)(QUAD)INFLUENZA VACC 0.5ML SYRINGE 18YRS & OLDER IM SCH (12:40)
--- NOTE | 2021-06-06 16:18 | IPNPDOC ---
Subjective Date Seen The patient was seen on 06/06/21. Subjective Chief Complaint/HPI Patient was seen and examined at bedside this morning. Presently, he is on high flow oxygen and complains of shortness of breath with movement. He is awake, alert, oriented x3. He denied chest pain, abdominal pain, nausea, vomiting, problems with urination or bowel movements Objective Physical Examination Neck Exam: Positive: Supple Other physical findings General: Lying in bed, no acute distress Head/Neck/Throat: Trachea midline, mucous membranes moist Eyes: Sclera anicteric, no erythema or discharge appreciated bilaterally Thorax: On Vapotherm, inspiratory crackles appreciated bilaterally Cardiovascular: Normal rate, regular rhythm, normal S1, S2; no S3, S4, rubs /gallops/murmurs Abdomen: Bowel sounds present, soft/nontender/nondistended Genitourinary: No CVA tenderness, no Rocha in place Musculoskeletal: Moving all extremities, no edema Skin: Warm, dry Neurologic: AAOx3, speech fluent and goal-directed, no focal deficits, grossly intact Assessment /Plan Assessment #Acute on chronic respiratory failure with hypoxia -Patient has underlying 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 He is on baseline 6 L nasal cannula. On 06/05 he was unable to maintain saturations on mid flow therefore he was transferred to the ICU and placed on high flow. -Continue with IV steroids for exacerbation. -Continue with ab although procalcitonin min. there is susp for pna. Obtain sputum cultures. -Supportive care with acapella, nebulizer treatment as needed. -O2 saturation of 88 to 92%. #Presyncope -Likely secondary to his hypoxemia. Continue to monitor on telemetry. Orthostatic signs were negative. #Hemoptysis -Continue with plan as above. #CKD -Patient able to report that he has CKD stage IV and his creatinine baseline is 2.2. -Monitor urinary output, I/os, avoid nephrotoxic medication #GERD -Continue with PPI therapy #Macrocytic anemia -Iron panel consistent with anemia of chronic disease, likely due to his chronic kidney disease. -h/h remains stable. B12 and folate levels within normal limits #DVT prophylaxis -Continue with SCDs for today, if H&H remains stable will start heparin subcu. Disposition: Goals of care was discussed with the patient at length. He was explained he was requiring high supplemental oxygen via high flow/Vapotherm and as explained by the pulmonology team with his underlying lung pathology (as per patient he was diagnosed with underlying pulmonary fibrosis secondary to uncont rolled GERD) there was high likely petersen that he would not return to his baseline 02 levels; and if he did recurrent hospitalization would be anticipated. The patient reported he would not want to escalate care any further including in oxygen titration. He also wished not to undergo any further treatments or tests for not only his lung disease but also his other core morbidities. He understood that this could lead to , which he was okay with and wanted to be comfort care measures only. He wanted his and daughter to come see him prior to becoming comfort care, which was arranged for him. He wanted to have supper before comfort measures were to begin, which was respected. The family including daughter as well as were aware as per the patient wishes of how he want to proceed with comfort measures which they also respected. Of note. MOLST form was signed by the patient. Plan/VTE VTE Prophylaxis Ordered?: Yes VS, I&O, 24H, Fishbone Vital Signs/I&O Vital Signs Date Time Temp Pulse Resp B/P (MAP) Pulse Ox O2 Delivery O2 Flow Rate FiO2 06/06/21 08:28 79 141/65 06/06/21 08:00 98.3 24 85 HVNI-Vapotherm 35.0 80 I&O- Last 24 Hours up to 6 AM 06/06/21 05:59 Intake Total 1780 ml Output Total 900 ml Balance 880 ml Laboratory Data 24H LABS Laboratory Tests 2 06/06/21 04:39: Immature Granulocyte % (Auto) 0.9, Neutrophils (%) (Auto) 88.0H, Lymphocytes (%) (Auto) 6.0L, Monocytes (%) (Auto) 5.1, Eosinophils (%) (Auto) 0.0, Basophils (%) (Auto) 0.0, Neutrophils # (Auto) 20.6H, Lymphocytes # (Auto) 1.4L, Monocytes # (Auto) 1.2H, Eosinophils # (Auto) 0.0, Basophils # (Auto) 0.0, Nucleated Red Blood Cells % (auto) 0.0, Anion Gap 12, Glomerular Filtration Rate 20.7L, Calcium Level 8.5L CBC/BMP Laboratory Tests 06/05/21 18:00 9/15/21 04:39 Microbiology Microbiology 06/04/21 Blood Culture - Preliminary, Resulted No growth after 24 hours . All specim... 06/04/21 Blood Culture - Preliminary, Resulted No growth after 24 hours . All specim... MENDY LEE M.D. Jun 06, 2021 16:06
[2021-06-06] MEDS ORDERED: SCOPOLAMINE 1MG TRANSDERMAL PATCH TOP PRN (18:05)
[2021-06-06] MEDS ORDERED: MORPHINE 2 MG/ML 1ML VIAL (J2270) IV PRN (18:05)
[2021-06-06] MEDS ORDERED: LORazepam 2 MG/ML VIAL IV PRN (18:05)
[2021-06-06] MEDS: ONDANSETRON 4MG/2ML VIAL IV PRN (18:46)
[2021-06-06] MEDS: HYDROMORPHONE HCL 0.5 MG/ 0.5 ML SYRINGE (J1170 PER 1) IV PRN (18:47)
--- NOTE | 2021-06-06 18:47 | ECGEPIP ---
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
[2021-06-07] MEDS: HYDROMORPHONE HCL 0.5 MG/ 0.5 ML SYRINGE (J1170 PER 1) IV PRN (00:40)
[2021-06-07] MEDS: IPRATROPIUM 0.5MG/ALBUTEROL 2.5MG INH SOL UD 3ML (DUONEB) NEB SCH ×4 (02:00→20:20)
[2021-06-07] MEDS: methylPREDNISolone 40MG 1ML VIAL IV SCH ×2 (02:13→21:51)
[2021-06-07 05:20] LABS: LYMPH # 0.9 10^3/uL (1.5-5.0); LYMPH % 5.8 % (24.0-44.0); MEAN CORPUSCULAR HEMOGLOBIN 31.1 pg (27.0-33.0); MEAN CORPUSCULAR HGB CONC 32.7 g/dl (32.0-36.5); MONO # 1.1 10^3/uL (0.0-0.8); MONO % 7.1 % (2.0-8.0); NEUTROPHILS # 13.7 10^3/uL (1.5-8.5); NEUTROPHILS % 86.1 % (36.0-66.0); PLATELET COUNT, AUTOMATED 306 10^3/uL (150-450); RED BLOOD COUNT 2.19 10^6/uL (4.30-6.10); WHITE BLOOD COUNT 15.9 10^3/uL (4.0-10.0)
[2021-06-07 05:22] LABS: HEMATOCRIT 20.8 % (42.0-52.0); HEMOGLOBIN 6.8 g/dl (13.5-17.5)
[2021-06-07 05:36] LABS: CALCIUM LEVEL 8.3 MG/DL (8.8-10.2); CREATININE FOR GFR 2.92 MG/DL (0.70-1.30); POTASSIUM SERUM 4.8 MEQ/L (3.5-5.1)
--- NOTE | 2021-06-07 08:54 | IPNPDOC ---
Subjective Date Seen The patient was seen on 06/07/21. Subjective Chief Complaint/HPI Patient was seen and examined at bedside this morning. He had no new complaints, and reported feeling comfortable. He denied shortness of breath, anxiety, chest pain, abdominal pain, nausea and vomiting. Objective Physical Examination Other physical findings General: Lying in bed, no acute distress Head/Neck/Throat: Trachea midline, mucous membranes moist Eyes: Sclera anicteric, no erythema or discharge appreciated bilaterally Thorax: On high flow , inspiratory crackles appreciated bilaterally Cardiovascular: Normal rate, regular rhythm, normal S1, S2; no S3, S4, rubs/gallops/murmurs Abdomen: Bowel sounds present, soft/nontender/nondistended Genitourinary: No CVA tenderness, no Rocha in place Musculoskeletal: Moving all extremities, no edema Skin: Warm, dry Neurologic: AAOx3, speech fluent and goal-directed, no focal deficits, grossly intact Assessment /Plan Assessment Goals of care was discussed with the patient at length. He was explained he was requiring high supplemental oxygen via high flow/Vapotherm and as explained by the pulmonology team with his underlying lung pathology (as per patient he was diagnosed with underlying pulmonary fibrosis secondary to uncontrolled GERD) there was high likely petersen that he would not return to his baseline 02 levels; and if he did recurrent hospitalization would be anticipated. The patient reported he would not want to escalate care any further including in oxygen titration. He also wished not to undergo any further treatments or tests for not only his lung disease but also his other core morbidities. He understood that this could lead to , which he was okay with and wanted to be comfort care measures only. He wanted his and daughter to come see him prior to becoming comfort care, which was arranged for him. He wanted to have supper before comfort measures were to begin, which was respected. The family including daughter as well as were aware as per the patient wishes of how he want to proceed with comfort measures which they also respected. Of note. MOLST form was signed by the patient. Patient's hemoglobin did drop below 7 today, however, patient is comfortable and did not want blood transfusions or further care escalated as long as he is comfortable. MOLD BUNCH TRIMMER orders in place. Patient will be made ALC. Plan/VTE VTE Prophylaxis Ordered?: Yes VS, I&O, 24H, Fishbone Vital Signs/I&O Vital Signs Date Time Temp Pulse Resp B/P (MAP) Pulse Ox O2 Delivery O2 Flow Rate FiO2 06/07/21 00:50 16 06/06/21 16:00 35.0 80 06/06/21 12:00 97.6 65 115/57 (76) 89 HVNI-Vapotherm I&O- Last 24 Hours up to 6 AM 06/07/21 06:00 Intake Total 600 ml Output Total 1475 ml Balance -875 ml Laboratory Data 24H LABS Laboratory Tests 2 06/07/21 04:56: Immature Granulocyte % (Auto) 1.0, Neutrophils (%) (Auto) 86.1H, Lymphocytes (%) (Auto) 5.8L, Monocytes (%) (Auto) 7.1, Eosinophils (%) (Auto) 0.0, Basophils (%) (Auto) 0.0, Neutrophils # (Auto) 13.7H, Lymphocytes # (Auto) 0.9L, Monocytes # (Auto) 1.1H, Eosinophils # (Auto) 0.0, Basophils # (Auto) 0.0, Nucleated Red Blood Cells % (auto) 0.0, Anion Gap 11, Glomerular Filtration Rate 22.0L, Calcium Level 8.3L CBC/BMP Laboratory Tests 06/07/21 04:56 Microbiology Microbiology 06/04/21 Blood Culture - Preliminary, Resulted No Growth after 48 hours. All Specime... 06/04/21 Blood Culture - Preliminary, Resulted No Growth after 48 hours. All Specime... MENDY LEE M.D. Jun 07, 2021 08:52
[2021-06-07] MEDS: hydrOXYzine 10 MG TAB PO SCH (09:33)
[2021-06-07 16:09] LABS: MYCOPLASMA PNEUMONIAE IgG 860 U/mL (0-99); MYCOPLASMA PNEUMONIAE IgM <770 U/mL (0-769)
[2021-06-08] MEDS: IPRATROPIUM 0.5MG/ALBUTEROL 2.5MG INH SOL UD 3ML (DUONEB) NEB SCH ×4 (01:55→19:44)
[2021-06-08] MEDS: hydrOXYzine 10 MG TAB PO SCH (09:09)
[2021-06-08] MEDS: methylPREDNISolone 40MG 1ML VIAL IV SCH ×2 (09:09→20:19)
[2021-06-08] MEDS: ONDANSETRON 4MG/2ML VIAL IV PRN (20:19)
[2021-06-09] MEDS: IPRATROPIUM 0.5MG/ALBUTEROL 2.5MG INH SOL UD 3ML (DUONEB) NEB SCH ×4 (05:00→18:07)
[2021-06-09] MEDS: ONDANSETRON 4MG/2ML VIAL IV PRN (10:36)
[2021-06-09] MEDS: methylPREDNISolone 40MG 1ML VIAL IV SCH ×2 (10:37→20:13)
[2021-06-09] MEDS: hydrOXYzine 10 MG TAB PO SCH (10:37)
[2021-06-09] MEDS: PROCHLORPERAZINE 5 MG TAB (S0183) PO PRN ×2 (15:27→22:52)
[2021-06-10] MEDS: IPRATROPIUM 0.5MG/ALBUTEROL 2.5MG INH SOL UD 3ML (DUONEB) NEB SCH ×4 (02:21→20:19)
[2021-06-10] MEDS: PROCHLORPERAZINE 5 MG TAB (S0183) PO PRN (06:03)
[2021-06-10] MEDS: methylPREDNISolone 40MG 1ML VIAL IV SCH ×2 (08:34→20:43)
[2021-06-10] MEDS: hydrOXYzine 10 MG TAB PO SCH (10:10)
[2021-06-10] MEDS: HYDROMORPHONE HCL 0.5 MG/ 0.5 ML SYRINGE (J1170 PER 1) IV PRN (12:42)
--- NOTE | 2021-06-10 20:25 | ECHO ---
ECHOCARDIOGRAM DATE OF PROCEDURE: 06/05/2021 Age: Gender: Male Height: 168 cm Weight: 75 kg REFERRING INDIVIDUAL: Keiko Eaton, Nurse Practitioner. INDICATION: Dyspnea. MEASUREMENTS: 2D Measurements: Left ventricle diastole 4.0 cm Left ventricle systole 2.9 cm Intraventricular septum 1.31 cm Posterior wall 1.30 cm Aortic root 2.9 cm Left atrium 4.2 cm Proximal ascending aorta 3.5 cm Inferior vena cava 1.9 cm (more than 50% respiratory variation) Doppler Measurements: No aortic regurgitation or stenosis Aortic valve velocity 199 cm/sec LVOT velocity 109 cm/sec LVOT VTI 22.5 cm Very mild mitral regurgitation No mitral stenosis Mitral E velocity 90.5 cm/sec Mitral A velocity 110 cm/sec Very mild tricuspid regurgitation Estimated right ventricle systolic pressure 42-47 mmHg Estimated right atrial pressure 5-10 mmHg No pulmonic regurgitation MITRAL ANNULAR TISSUE DOPPLER: E prime septal 4.6 cm/sec DESCRIPTION: Rhythm was sinus. This was a moderately technically difficult echocardiogram which was performed with the patient supine and sitting at times. Patient was receiving a nebulizer at the time of the echocardiogram. No pericardial effusion. This was a 2D, M-mode, color flow Doppler and pulse wave Doppler examination and included mitral annular tissue Doppler. CONCLUSIONS: 1. Hyperdynamic left ventricular (LV) systolic function. Left ventricular ejection fraction (LVEF) of 35% by visual estimate. Mild concentric left ventricular hypertrophy. No regional LV wall motion abnormalities. Grade 1 LV diastolic dysfunction (impaired relaxation filling pattern). 2. Suggestive of moderate elevation of estimated right ventricle systolic pressure. Normal right ventricle size with hyperdynamic right ventricular (RV) systolic function. Very mild tricuspid regurgitation. 3. Mild left atrial dilatation. 4. Moderate mitral annular calcification with very mild mitral regurgitation. No mitral stenosis. 5. Mild aortic valve sclerosis of A3-cusp aortic valve. Mild aortic regurgitation. 6. Otherwise normal appearing echocardiogram Doppler findings. 7. Moderately technically difficult echocardiogram.
[2021-06-11] MEDS: IPRATROPIUM 0.5MG/ALBUTEROL 2.5MG INH SOL UD 3ML (DUONEB) NEB SCH ×4 (01:27→17:47)
[2021-06-11] MEDS: ONDANSETRON 4MG/2ML VIAL IV PRN (02:28)
[2021-06-11] MEDS: PROCHLORPERAZINE 5 MG TAB (S0183) PO PRN ×2 (09:02→17:01)
[2021-06-11] MEDS: methylPREDNISolone 40MG 1ML VIAL IV SCH ×2 (09:05→20:43)
[2021-06-11] MEDS: hydrOXYzine 10 MG TAB PO SCH (09:05)
[2021-06-11] MEDS: HYDROMORPHONE HCL 0.5 MG/ 0.5 ML SYRINGE (J1170 PER 1) IV PRN (17:01)
[2021-06-12] MEDS: IPRATROPIUM 0.5MG/ALBUTEROL 2.5MG INH SOL UD 3ML (DUONEB) NEB SCH ×4 (02:00→19:05)
[2021-06-12] MEDS: hydrOXYzine 10 MG TAB PO SCH (08:48)
[2021-06-12] MEDS: methylPREDNISolone 40MG 1ML VIAL IV SCH ×2 (08:48→20:58)
[2021-06-12] MEDS: PROCHLORPERAZINE 5 MG TAB (S0183) PO PRN (12:45)
[2021-06-13] MEDS ORDERED: PERCOCET 5MG/325MG TAB As Ordered ONE (00:49)
[2021-06-13] MEDS ORDERED: ONDANSETRON 4MG/2ML VIAL As Ordered ONE (00:49)
[2021-06-13] MEDS: ONDANSETRON 4MG/2ML VIAL IV PRN (00:50)
[2021-06-13] MEDS: PERCOCET 5MG/325MG TAB PO PRN ×2 (00:50→19:57)
[2021-06-13] MEDS: IPRATROPIUM 0.5MG/ALBUTEROL 2.5MG INH SOL UD 3ML (DUONEB) NEB SCH ×4 (03:14→19:41)
[2021-06-13] MEDS: methylPREDNISolone 40MG 1ML VIAL IV SCH ×2 (09:18→19:57)
[2021-06-13] MEDS: hydrOXYzine 10 MG TAB PO SCH (09:20)
[2021-06-13] MEDS: PROCHLORPERAZINE 5 MG TAB (S0183) PO PRN ×2 (15:37→23:07)
[2021-06-14] MEDS: IPRATROPIUM 0.5MG/ALBUTEROL 2.5MG INH SOL UD 3ML (DUONEB) NEB SCH ×4 (01:12→20:46)
[2021-06-14] MEDS: ONDANSETRON 4MG/2ML VIAL IV PRN (03:33)
[2021-06-14] MEDS: hydrOXYzine 10 MG TAB PO SCH (08:40)
[2021-06-14] MEDS: methylPREDNISolone 40MG 1ML VIAL IV SCH ×2 (08:42→20:27)
[2021-06-14] MEDS: PERCOCET 5MG/325MG TAB PO PRN ×2 (12:16→20:32)
[2021-06-15] MEDS: IPRATROPIUM 0.5MG/ALBUTEROL 2.5MG INH SOL UD 3ML (DUONEB) NEB SCH ×4 (01:37→18:06)
[2021-06-15] MEDS: hydrOXYzine 10 MG TAB PO SCH (09:51)
[2021-06-15] MEDS: methylPREDNISolone 40MG 1ML VIAL IV SCH ×2 (09:52→19:52)
[2021-06-15] MEDS: PERCOCET 5MG/325MG TAB PO PRN ×2 (09:52→19:53)
[2021-06-16] MEDS: PERCOCET 5MG/325MG TAB PO PRN ×3 (00:23→19:47)
[2021-06-16] MEDS: IPRATROPIUM 0.5MG/ALBUTEROL 2.5MG INH SOL UD 3ML (DUONEB) NEB SCH ×3 (07:34→19:24)
[2021-06-16] MEDS: methylPREDNISolone 40MG 1ML VIAL IV SCH ×2 (10:25→19:47)
[2021-06-16] MEDS: hydrOXYzine 10 MG TAB PO SCH (10:25)
[2021-06-16] MEDS: PANTOPRAZOLE 40MG TAB (PROTONIX) PO SCH (11:29)
[2021-06-17] MEDS: IPRATROPIUM 0.5MG/ALBUTEROL 2.5MG INH SOL UD 3ML (DUONEB) NEB SCH ×4 (01:47→20:07)
[2021-06-17] MEDS: PERCOCET 5MG/325MG TAB PO PRN ×3 (05:36→20:49)
[2021-06-17] MEDS: hydrOXYzine 10 MG TAB PO SCH (09:48)
[2021-06-17] MEDS: PANTOPRAZOLE 40MG TAB (PROTONIX) PO SCH (09:48)
[2021-06-17] MEDS: predniSONE 20 MG TAB PO SCH (09:48)
--- NOTE | 2021-06-17 11:35 | IPNPDOC ---
Text Note Date of Service The patient was seen on 06/17/21. NOTE Subjective: No new acute events overnight. The pain level is adequately controlled. Objective: GENERAL APPEARANCE: NAD HEENT: no scleral icterus, no JVD, EOMI CARDIOVASCULAR: S1S2 LUNGS: Diminished lung sounds bilaterally ABDOMEN: soft & not tender w palpation MUSCULOSKELETAL: no cyanosis, no swelling INTEGUMENT: no generalized pallor NEUROLOGICAL: cranial nerve function from 2-12 intact, follows commands, speech not dysarthric Assessment plan Patient continue receiving palliative treatment according to UNDERWRITING SPECIALIST protocol VS,Fishbone, I+O VS, Fishbone, I+O Vital Signs Date Time Temp Pulse Resp B/P (MAP) Pulse Ox O2 Delivery O2 Flow Rate FiO2 06/17/21 09:00 6.0 06/15/21 10:50 18 06/14/21 22:00 Room Air I&O- Last 24 Hours up to 6 AM 06/17/21 06:00 Intake Total 1950 ml Output Total 800 ml Balance 1150 ml ADAM HENNING DO Jun 17, 2021 11:34
[2021-06-17] MEDS ORDERED: LORazepam 1 MG TAB PO PRN (17:10)
[2021-06-17] MEDS ORDERED: MIRALAX *UNIT DOSE* 17GM PACKET PO PRN (17:10)
[2021-06-17] MEDS ORDERED: ONDANSETRON 4 MG TAB PO PRN (17:10)
[2021-06-17] MEDS: BISACODYL 5 MG TAB PO SCH (20:47)
[2021-06-18] MEDS: IPRATROPIUM 0.5MG/ALBUTEROL 2.5MG INH SOL UD 3ML (DUONEB) NEB SCH ×4 (01:41→20:12)
[2021-06-18] MEDS: BISACODYL 5 MG TAB PO SCH (07:52)
[2021-06-18] MEDS: predniSONE 20 MG TAB PO SCH (07:53)
[2021-06-18] MEDS: PANTOPRAZOLE 40MG TAB (PROTONIX) PO SCH (07:54)
[2021-06-18] MEDS: PERCOCET 5MG/325MG TAB PO PRN ×2 (07:54→15:06)
[2021-06-18] MEDS: hydrOXYzine 10 MG TAB PO SCH (08:01)
--- NOTE | 2021-06-18 15:35 | DS.PDOC ---
Discharge Summary General Date of Admission Jun 04, 2021 at 18:05 Date of Discharge 06/19/21 Discharge Summary PROCEDURES PERFORMED DURING STAY: [None]. 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 HISTORY OF PRESENT ILLNESS: Ms. Montes is a 85-year-old male with significant history of hypertension, GERD, CKD, vertigo TAVR and chronic respiratory failure who presents with complaints of worsening shortness of breath. Patient reports that he splits his time in [place] and [place] depend on the season. He is in the process of transitioning to [facility] living [facility] so that he and his can be close to his daughter who is a retired RN. Patient reports that he recently had cardiac work-up done in his home town of [facility] with no new findings he also endorses last week undergoing an EGD with GI to confirm that he no longer has a gastric ulcer. Patient reports that for the past 3 days he has had worsening shortness of breath dyspnea on exertion and poor saturation readings as low as 84% with his 6 L nasal cannula. Patient endorses cough productive and even bloody. He also endorses subjective fever chills. It was today as he was feeling "out of it and his family was reportedly concerned regarding patient passing out or he described "or maybe I did pass out" and thus, he came to ER. Pt denies bagley, sinus congestion, sore throat, palpitations, chest pain, n/v/d, abdominal pain, weakness, or sensory changes. Of note, patient saturation in the 70s upon arrival to ER improvement with nonrebreather and de-escalation.oxime mask 10 L 91%. At time of exam patient unlabored and seemingly comfortable. During high talkative point of exam patient did notably desat to 86% but upon sitting up and not talking he was able to increase to 91%. Patient reports that he feels much better with oxygen and feels almost at baseline breathing effort. . HOSPITAL COURSE: During the hospital stay Goals of care was discussed with the patient at length. He was explained he was requiring high supplemental oxygen via high flow/Vapotherm and as explained by the pulmonology team with his underlying lung pathology (as per patient he was diagnosed with underlying pulmonary fibrosis secondary to uncontrolled GERD) there was high likely petersen that he would not return to his baseline 02 levels; and if he did recurrent hospitalization would be anticipated. The patient reported he would not want to escalate care any further including in oxygen titration. He also wished not to undergo any further treatments or tests for not only his lung disease but also his other core morbidities. He understood that this could lead to , which he was okay with and wanted to be comfort care measures only. He wanted his and daughter to come see him prior to becoming comfort care, which was arranged for him. He wanted to have supper before comfort measures were to begin, which was respected. The family including daughter as well as were aware as per the patient wishes of how he want to proceed with comfort measures which they also respected. Of note. MOLST form was signed by the patient. DISCHARGE MEDICATIONS: Please see below. ALLERGIES: Please see below. PHYSICAL EXAMINATION ON DISCHARGE: VITAL SIGNS: Please see below. Physical Examination Neck Exam: Positive: Supple Other physical findings General: Lying in bed, no acute distress Head/Neck/Throat: Trachea midline, mucous membranes moist Eyes: Sclera anicteric, no erythema or discharge appreciated bilaterally Thorax: On Vapotherm, inspiratory crackles appreciated bilaterally Cardiovascular: Normal rate, regular rhythm, normal S1, S2; no S3, S4, rubs/gallops/murmurs Abdomen: Bowel sounds present, soft/nontender/nondistended Genitourinary: No CVA tenderness, no Rocha in place Musculoskeletal: Moving all extremities, no edema Skin: Warm, dry Neurologic: AAOx3, speech fluent and goal-directed, no focal deficits, grossly intact LABORATORY DATA: Please see below. PROGNOSIS: Poor ACTIVITY: [As tolerated]. DIET: Regular DISCHARGE PLAN: Hospice care ITEMS TO FOLLOWUP ON ON OUTPATIENT: Hospice DISCHARGE CONDITION: [Stable]. TIME SPENT ON DISCHARGE: 40 minutes. Vital Signs/I&Os Vital Signs Date Time Temp Pulse Resp B/P (MAP) Pulse Ox O2 Delivery O2 Flow Rate FiO2 06/18/21 15:06 20 06/18/21 10:57 6.0 06/17/21 20:49 Nasal Cannula I&O- Last 24 Hours up to 6 AM 06/18/21 06:00 Intake Total 660 ml Output Total 1625 ml Balance -965 ml Allergies Coded Allergies: morphine (Verified Adverse Reaction, Mild, vomiting, 06/04/21) ADAM HENNING DO Jun 18, 2021 15:35
[2021-06-18] MEDS ORDERED: ALBUTEROL SULFATE 2.5 MG/0.5 ML INH NEB SOLN NEB PRN (23:45)
[2021-06-19] MEDS: IPRATROPIUM 0.5MG/ALBUTEROL 2.5MG INH SOL UD 3ML (DUONEB) NEB SCH ×2 (01:22→07:10)
[2021-06-19] MEDS ORDERED: ATIV1TAB7 PO (07:32)
[2021-06-19] MEDS ORDERED: ONDA-83 PO (07:32)
[2021-06-19] MEDS ORDERED: PERCOCET PO (07:32)
[2021-06-19] MEDS ORDERED: BISAC5TA PO (07:32)
[2021-06-19] MEDS ORDERED: TRAN1DIS4 TOP (07:32)
[2021-06-19] MEDS: predniSONE 20 MG TAB PO SCH (07:56)
[2021-06-19] MEDS: BISACODYL 5 MG TAB PO SCH (07:56)
[2021-06-19] MEDS: PANTOPRAZOLE 40MG TAB (PROTONIX) PO SCH (07:56)
[2021-06-19] MEDS: hydrOXYzine 10 MG TAB PO SCH (07:56)
[2021-06-19] MEDS: PERCOCET 5MG/325MG TAB PO PRN (07:57)
== END 2021-06-19 09:30 | disposition hospice, home (50) | DRG 196 ==
LOC: M ED 18:04 → M ED INP 18:05 → M MSPAV 06-05 16:56 → M ICU 06-05 20:49 → M MSPAV 06-07 11:33
PROVIDERS: ADMIT Internal Medicine; ATTEND Internal Medicine
DX: J84.10 Pulmonary fibrosis, unspecified (principal); J96.21 Acute and chronic respiratory failure with hypoxia; J18.9 Pneumonia, unspecified organism; N18.4 Chronic kidney disease, stage 4 (severe); R04.2 Hemoptysis; I10 Essential (primary) hypertension; I27.20 Pulmonary hypertension, unspecified; K21.9 Gastro-esophageal reflux disease without esophagitis; R55 Syncope and collapse; Z51.5 Encounter for palliative care; Z88.5 Allergy status to narcotic agent; Z79.82 Long term (current) use of aspirin; Z79.899 Other long term (current) drug therapy; Z66 Do not resuscitate; K44.9 Diaphragmatic hernia without obstruction or gangrene